=== PATIENT | male | born 1955 | race Caucasian/White ===

== ENCOUNTER 2021-12-24 08:00 | Outpatient (CLI) | payer OTHER | END 2021-12-24 23:59 | LOC: LAB.N 08:00 | PROVIDERS: ATTEND Family Medicine | DX: R05.9 Cough, unspecified (principal); Z20.822 Contact with and (suspected) exposure to COVID-19 ==

== ENCOUNTER 2021-12-24 12:04 | Outpatient (CLI) | payer OTHER ==
--- NOTE | 2021-12-24 12:45 | XRAY Report ---
PROCEDURE: Chest 2 View X-Ray INDICATIONS: COUGH TECHNIQUE: 2 view(s) of the chest. COMPARISON: None. FINDINGS: SUPPORT DEVICES: None. LUNGS/PLEURA: No focal consolidation, pleural effusion or space-occupying pneumothorax. MEDIASTINUM: The cardiomediastinal silhouette is within normal limits. BONES/SOFT TISSUES: No acute abnormality. IMPRESSION: 1.No acute cardiopulmonary abnormality. Reviewed by: Irving Hanson MD on 12/24/2021 12:43 PM PDT Approved by: Irving Hanson MD on 12/24/2021 12:43 PM PDT Station ID: [id number]
== END 2021-12-24 23:59 | disposition home or self-care (01) ==
LOC: DI.N 12:04
PROVIDERS: ATTEND Family Medicine
DX: R05.9 Cough, unspecified (principal); Z20.822 Contact with and (suspected) exposure to COVID-19